=== PATIENT | male | born 1965 | race Two or more races ===

== ENCOUNTER → 2017-04-22 | Day surgery (SDC) | payer MEDICAID ==
[~2017-04-22] MED LIST: GLUCOPHAGE500 MG PO; LIPITOR; PAXIL10 MG PO; PRINIVIL20 M1 PO
--- NOTE | ~2017-04-22 | OR ---
Unit #: [id number] #: [id number] Patient: ANETA DONALD [id number] [address] [place], [place] [address] [id number] MR#: [id number] NAME: ANETA DONALD ROOM: Date of Procedure: 04/22/2017 Admission Date: 04/22/2017 Surgeon: Taran Geiger M.D. : 1965 Attending Physician: Taran Geiger M.D. Primary Care Physician: Generic Doctor Not In System OPERATIVE REPORT PROCEDURE PERFORMED Esophagogastroduodenoscopy with biopsy and colonoscopy with biopsy. INDICATIONS FOR PROCEDURE A 51-year-old gentleman, his brother had colon cancer and mother had colon cancer, also with chronic GERD symptoms undergoing evaluation with upper endoscopy and colonoscopy. MEDICATIONS Monitored anesthesia. POSTOPERATIVE FINDINGS 1. Small hiatal hernia. 2. Nodular gastritis involving antrum and body. Biopsies taken. 3. Normal duodenum and distal duodenum. 4. 2 mm polyp, descending colon, removed using biopsy forceps. 5. Rest of the colon exam was normal to the cecum. 6. Internal hemorrhoids. PLAN Given his family history, I would recommend a repeat colonoscopy in 5 years. Follow up on pathology report. DESCRIPTION OF PROCEDURE The patient was explained of the procedure, risks, and benefits along with the risks and benefits of anesthesia. He was brought to the endoscopy room. Propofol anesthesia was given. Bite block was placed. The scope was passed down the mouth into esophagus, stomach, duodenum, and distal duodenum. Findings as described. Biopsies taken. Gently, I pulled the scope out of the patient's mouth. He tolerated it well. At this time, he was turned around and repositioned for colonoscopy. Rectal exam was done, which was normal. Colonoscope was lubricated, passed up the rectum, advanced under direct vision all the way to the cecum. Cecum was identified by ileocecal valve and appendiceal orifice. Two polyps were seen as described. I retroflexed in the rectum, small hemorrhoids seen. Scope was gently pulled out. He tolerated it well. Dictated by... Taran Geiger M.D. Unit #: [id number] #: [id number] Patient: ANETA DONALD GAGE/jannie TD: 04/23/2017 01:43 JOB #: [id number] OPERATIVE REPORT Page 1 of 1 X Taran Geiger MD PROCEDURE OPERATIVE NOTE
== END | disposition home or self-care (01) ==
LOC: COPS 08:08
DX: Z12.11 Encounter for screening for malignant neoplasm of colon (principal); D12.4 Benign neoplasm of descending colon; K29.50 Unspecified chronic gastritis without bleeding; K44.9 Diaphragmatic hernia without obstruction or gangrene; K21.9 Gastro-esophageal reflux disease without esophagitis; K64.8 Other hemorrhoids; E11.9 Type 2 diabetes mellitus without complications; I10 Essential (primary) hypertension; E78.5 Hyperlipidemia, unspecified; Z80.0 Family history of malignant neoplasm of digestive organs; Z88.0 Allergy status to penicillin; Z79.4 Long term (current) use of insulin; Z79.899 Other long term (current) drug therapy; Z90.49 Acquired absence of other specified parts of digestive tract
CPT/HCPCS: 82947; 88305; 88312